=== PATIENT | male | born 1970 | race Caucasian/White ===

== ENCOUNTER → 2016-11-04 08:24 | Outpatient (CLI) | payer MEDICAID ==
--- NOTE | 2016-11-17 08:22 | EMG ---
PATIENT:PANCHO OLIVAS DATE OF SERVICE: 11/04/16 MEDICAL RECORD: [id number] DATE OF : 72 LOCATION: [facility] ADMISSION DATE: REFERRING PHYSICIAN: BC BERNAL MD INTERPRETING PHYSICIAN: NATHAN PULIDO MD DATE OF SERVICE: 11/04/2016 Electromyographic Report REFERRED BY: Bc Bernal MD as an outpatient. ELECTROMYOGRAPHIC DATA: Electromyographic examination is limited to both upper extremities. In the right upper extremity, right median motor stimulation elicits a compound motor action potential with a distal latency of 7.5 milliseconds, peak amplitude of only 50 microvolts and calculated conduction velocity of 26 meters per second. Right ulnar motor stimulation elicits a compound motor action potential with a distal latency of 3.1 milliseconds, peak amplitude of 9 millivolts, and calculated conduction velocity of 64 meters per second. Right ulnar motor stimulation across the elbow fails to elicit evidence of conduction block at this level. Antidromic right median sensory stimulation elicits no reliable response. Antidromic right ulnar sensory stimulation elicits a response with a distal latency of 3.3 milliseconds, amplitude of 8 microvolts and calculated conduction velocity of 57 meters per second. The right median F wave is absent. In the left upper extremity, left median motor stimulation elicits a compound motor action potential with a distal latency of 6.4 milliseconds, peak amplitude of 160 microvolts and calculated conduction velocity of 52 meters per second. Left ulnar motor stimulation elicits a compound motor action potential with a distal latency of 3.2 milliseconds, peak amplitude of 5 millivolts, and calculated conduction velocity of 53 meters per second. Left ulnar motor stimulation across the elbow fails to elicit evidence of conduction block at this level. Antidromic left median sensory stimulation elicits no reliable response. Antidromic left ulnar sensory stimulation elicits a response with a distal latency of 3.2 milliseconds, amplitude of 2 microvolts and calculated conduction velocity of 53 meters per second. The left median F wave is absent. Needle electrode examination is limited to both upper extremities as well. Muscles interrogated include the abductor pollicis brevis, first dorsal interosseous, abductor digiti minimi, pronator teres, biceps brachii, triceps and deltoid. There is increased insertional activity with positive sharp waves and occasional fibrillation potentials in the right abductor pollicis brevis only. Insertional activity is diminished in the left abductor pollicis brevis. Motor unit potential morphology and the pattern of motor unit potential firing and recruitment demonstrates a lack of motor units firing in near field at the left abductor pollicis brevis. Motor units are of normal morphology otherwise. At the right the abductor pollicis brevis, motor units are of decreased number firing at an increased rate consistent with decreased recruitment. 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 TRANSINT:[id number] Voice Confirmation ID: [id number] DOCUMENT ID: [id number] NATHAN PULIDO MD at 0822 CC: [id number] DICTATION DATE: 11/04/16 0939 RUBBER BELT SPLICER: 11/04/16 [id number] DEP CLI 11/04/16 [id number] [place] [id number]
== END | disposition home or self-care (01) ==
LOC: D.CN 11-03 09:00
DX: G56.03 Carpal tunnel syndrome, bilateral upper limbs (principal)